=== PATIENT | female | born 1955 | race African-American/Black ===

== ENCOUNTER 2018-06-11 07:55 | Inpatient (IN) | payer MEDICAID, OTHER ==
[~2018-06-11] VITALS: Ht 157.5 cm; Wt 79.4 kg
[2018-06-11] MEDS ORDERED: ONDANSETRON HCL 4MG/2ML INJ IV STA (08:34)
[2018-06-11] MEDS ORDERED: MORPHINE SULFATE 4 MG/ML CPJ (NOT FOR IM USE) IV STA (08:34)
[2018-06-11 08:59] LABS: HEMATOCRIT. 30.3 % (36.0-48.0); HEMOGLOBIN. 9.4 g/dL (12.0-16.0); MEAN CORPUSCULAR HEMOGLOBIN 27.1 pg (28.0-32.0); MEAN CORPUSCULAR VOLUME 87.5 fL (81.0-99.0); MEAN PLATELET VOLUME 9.9 fl (7.4-10.4); PLATELET 201 x1000/uL (130-400); RED BLOOD CELL COUNT 3.46 mill/uL (4.2-5.4); RED CELL DISTRIBUTION WIDTH 18.1 % (11.6-14.6)
[2018-06-11 09:06] LABS: CHLORIDE 99 mEq/L (98-107)
[2018-06-11] MEDS ORDERED: DEXTROSE 50% WATER 50ML SYRINGE IV ONE ×2 (09:24→09:30)
[2018-06-11] MEDS ORDERED: POTASSIUM CHLORIDE 20MEQ TABLET SR PO ONE (09:30)
[2018-06-11 10:39] LABS: NUCLEATED RED BLOOD CELLS 3 /100 WBC; PLATELET ESTIMATE NORMAL
[2018-06-11] MEDS ORDERED: PIPERACILLIN/TAZ 3.375G PREMIX 50 ML IV ONE (10:45)
[2018-06-11] MEDS ORDERED: VANCOMYCIN 1 G PREMIX 200 ML IV ONE (10:45)
[2018-06-11] MEDS ORDERED: IPRATROPIUM/ALBUTEROL 0.5-3(2.5)MG/3ML NEB INH PRN (12:30)
[2018-06-11] MEDS ORDERED: ONDANSETRON HCL 4MG/2ML INJ IV PRN (12:30)
[2018-06-11] MEDS ORDERED: DIPHENHYDRAMINE 50MG/ML VIAL IV PRN (12:30)
[2018-06-11] MEDS ORDERED: DOCUSATE SODIUM 100MG CAPSULE PO PRN (12:30)
[2018-06-11 13:18] LABS: CREATINE KINASE 94 IU/L (26-192)
[2018-06-11 13:53] VITALS: BP 148/70
[2018-06-11 14:27] LABS: CHLORIDE 98 mEq/L (98-107)
[2018-06-11] MEDS ORDERED: CLONIDINE 0.1MG TABLET PO PRN (14:30)
[2018-06-11] MEDS ORDERED: CLONIDINE 0.2MG TABLET PO PRN (14:30)
[2018-06-11 14:31] LABS: ETHANOL BLOOD < 10 mg/dL
[2018-06-11 15:00] LABS: HEPATITIS B SURFACE ANTIGEN NEGATIVE
[2018-06-11 15:30] LABS: HEPATITIS A AB IGM NEGATIVE (NEGATIVE)
[2018-06-11 16:24] VITALS: BP 149/73
[2018-06-11] MEDS: DILTIAZEM HCL 120MG CAPSULE CD 24HR PO SCH ×2 (17:10→21:00)
[2018-06-11 18:00] VITALS: BP 150/80
[2018-06-11] MEDS ORDERED: POTASSIUM CHLORIDE 20MEQ TABLET SR PO NR (18:00)
[2018-06-11 20:00] VITALS: BP_SYST 164; BP_SYST 85; BP_DIAS 46; BP_DIAS 88
[2018-06-11 21:05] VITALS: BP 97/45
[2018-06-11] MEDS ORDERED: DEXTROSE 50% WATER 50ML SYRINGE IV PRN (23:30)
[2018-06-12] VITALS (19 sets, daily range): BP systolic 100–153; BP diastolic 50–101
[2018-06-12 00:22] LABS: MEAN CORPUSCULAR HEMOGLOBIN 27.6 pg (28.0-32.0); PLATELET 114 x1000/uL (130-400); RED BLOOD CELL COUNT 2.27 mill/uL (4.2-5.4); RED CELL DISTRIBUTION WIDTH 17.2 % (11.6-14.6)
[2018-06-12 00:35] LABS: HEMOGLOBIN. 6.3 g/dL (12.0-16.0)
[2018-06-12 00:37] LABS: HEMATOCRIT. 19.7 % (36.0-48.0)
[2018-06-12 00:48] LABS: CREATINE KINASE 51 IU/L (26-192)
[2018-06-12] MEDS: SODIUM CHLORIDE 0.45% 1,000 ML IV SCH ×2 (01:34→10:19)
[2018-06-12] MEDS: PANTOPRAZOLE 80 MG in SODIUM CHLORIDE 0.9% 100 ML IV SCH ×2 (02:39→10:18)
[2018-06-12] MEDS: HYDROCODONE/ACETAMINOPHEN 5/325MG TABLET PO PRN (03:56)
[2018-06-12] MEDS ORDERED: MAGNESIUM 2 G PREMIX 50 ML IV SCH (06:00)
[2018-06-12] MEDS: BLOOD SUGAR DIAGNOSTIC STRIP TEST SCH ×4 (06:43→21:34)
[2018-06-12] MEDS: INSULIN LISPRO 100 UNITS/ML SUBCUT SCH ×4 (06:47→21:00)
[2018-06-12 07:40] LABS: NUCLEATED RED BLOOD CELLS 9 /100 WBC; PLATELET ESTIMATE SLIGHTLY DECREASED
[2018-06-12 08:38] LABS: BASOPHILS % 0.1 % (0.0-2.0); EOSINOPHILS % 0.2 % (0.0-5.0); LYMPHOCYTES % 7.4 % (20.0-50.0); MEAN CORPUSCULAR HEMOGLOBIN 27.6 pg (28.0-32.0); MEAN CORPUSCULAR VOLUME 87.7 fL (81.0-99.0); MEAN PLATELET VOLUME 10.2 fl (7.4-10.4); MONOCYTES % 7.6 % (2.0-8.0); NEUTROPHILS % 84.7 % (40.0-76.0); PLATELET 101 x1000/uL (130-400); RED BLOOD CELL COUNT 2.06 mill/uL (4.2-5.4); RED CELL DISTRIBUTION WIDTH 17.2 % (11.6-14.6)
[2018-06-12 08:52] LABS: HEMOGLOBIN. 5.7 g/dL (12.0-16.0)
[2018-06-12 09:00] LABS: CHLORIDE 100 mEq/L (98-107)
[2018-06-12 09:12] LABS: CREATINE KINASE MB FRACTION < 1.0 ng/mL (0.5-3.6); HDL CHOLESTEROL 8 mg/dL (40-59)
[2018-06-12 09:16] LABS: CREATINE KINASE 32 IU/L (26-192); LDL CHOLESTEROL 19 mg/dL (5-100)
[2018-06-12 09:48] LABS: CREATINE KINASE 37 IU/L (26-192)
[2018-06-12] MEDS: DILTIAZEM HCL 120MG CAPSULE CD 24HR PO SCH ×2 (10:01→21:27)
[2018-06-12] MEDS: PANTOPRAZOLE SODIUM 40 MG/VIAL IV SCH ×2 (12:26→21:27)
[2018-06-12] MEDS ORDERED: PROPOFOL 200MG/20ML VIAL IV ONE ×2 (13:59→14:10)
[2018-06-12] MEDS ORDERED: LIDOCAINE HCL/PF 1% 10 MG/ML 5ML VIAL ONE (13:59)
[2018-06-12 15:58] LABS: TOTAL IRON BINDING CAPACITY 95 ug/dL (250-450)
[2018-06-12 16:32] LABS: VITAMIN B12 SERUM >2000 pg/mL pg/mL (211-911)
[2018-06-12 17:20] LABS: FERRITIN 302 ng/mL (10-291)
[2018-06-12] MEDS ORDERED: LORAZEPAM 1MG TABLET PO PRN (17:30)
[2018-06-12] MEDS: CEFTRIAXONE 1 G PREMIX 50 ML IV SCH (18:38)
[2018-06-12 20:55] LABS: INR 1.4; PARTIAL THROMBOPLASTIN TIME 37.3 sec (23.4-31.0); PROTHROMBIN TIME 14.1 sec (9.1-11.1)
[2018-06-12 20:58] LABS: HEMATOCRIT. 30.7 % (36.0-48.0); HEMOGLOBIN. 10.3 g/dL (12.0-16.0); MEAN CORPUSCULAR HEMOGLOBIN 29.2 pg (28.0-32.0); MEAN CORPUSCULAR VOLUME 87.3 fL (81.0-99.0); MEAN PLATELET VOLUME 10.7 fl (7.4-10.4); PLATELET 70 x1000/uL (130-400); RED BLOOD CELL COUNT 3.52 mill/uL (4.2-5.4); RED CELL DISTRIBUTION WIDTH 15.5 % (11.6-14.6)
[2018-06-12 22:39] LABS: NUCLEATED RED BLOOD CELLS 15 /100 WBC; PLATELET ESTIMATE DECREASED
[2018-06-13] VITALS (13 sets, daily range): BP systolic 88–147; BP diastolic 57–108
[2018-06-13] MEDS: BLOOD SUGAR DIAGNOSTIC STRIP TEST SCH (06:22)
[2018-06-13 06:42] LABS: HEMATOCRIT 33.4 % (36.0-48.0); HEMOGLOBIN 11.1 g/dL (12.0-16.0)
[2018-06-13] MEDS: INSULIN LISPRO 100 UNITS/ML SUBCUT SCH (07:20)
[2018-06-13] MEDS: DILTIAZEM HCL 120MG CAPSULE CD 24HR PO SCH (08:38)
[2018-06-13] MEDS: PANTOPRAZOLE SODIUM 40 MG/VIAL IV SCH ×2 (08:57→22:00)
[2018-06-13 09:06] LABS: HIV SCREEN 4G Non Reactive (Non Reactive)
[2018-06-13] MEDS ORDERED: KCL 20MEQ/100ML PREMIX 100 ML IV NR (11:30)
[2018-06-13] MEDS: HYDROCODONE/ACETAMINOPHEN 5/325MG TABLET PO PRN (12:33)
[2018-06-13] MEDS ORDERED: CARVEDILOL 3.125 MG TABLET PO NR (13:15)
[2018-06-13 15:22] LABS: HEMATOCRIT 35.9 % (36.0-48.0); HEMOGLOBIN 11.7 g/dL (12.0-16.0)
[2018-06-13] MEDS: CEFTRIAXONE 1 G PREMIX 50 ML IV SCH (17:09)
[2018-06-13] MEDS: DILTIAZEM HCL 60MG TABLET PO SCH (17:12)
[2018-06-13] MEDS: SODIUM CHLORIDE 0.45% 1,000 ML IV SCH (17:18)
[2018-06-13] MEDS: CARVEDILOL 3.125 MG TABLET PO SCH (21:00)
[2018-06-13] MEDS ORDERED: DEXT 5%/0.45% NACL 1000ML 1,000 ML IV SCH (21:30)
[2018-06-13] MEDS: DEXTROSE 50% WATER 50ML SYRINGE IV PRN (22:06)
[2018-06-13] MEDS: ACETAMINOPHEN 325MG TABLET PO PRN (22:27)
[2018-06-13] MEDS ORDERED: DEXAMETHASONE 1MG TABLET PO NR (23:55)
[2018-06-14] VITALS (64 sets, daily range): BP systolic 56–161; BP diastolic 24–108
[2018-06-14] MEDS: BLOOD SUGAR DIAGNOSTIC STRIP TEST SCH ×6 (04:00→18:00)
[2018-06-14] MEDS: DILTIAZEM HCL 60MG TABLET PO SCH ×4 (06:00→16:51)
[2018-06-14] MEDS ORDERED: BLOOD SUGAR DIAGNOSTIC STRIP TEST SCH (06:50)
[2018-06-14] MEDS: INSULIN LISPRO 100 UNITS/ML SUBCUT SCH ×2 (07:20→08:20)
[2018-06-14 08:28] LABS: HEMATOCRIT. 34.4 % (36.0-48.0); MEAN CORPUSCULAR VOLUME 90.7 fL (81.0-99.0); RED BLOOD CELL COUNT 3.79 mill/uL (4.2-5.4); RED CELL DISTRIBUTION WIDTH 16.3 % (11.6-14.6)
[2018-06-14] MEDS ORDERED: DEXT 10% WATER 1,000 ML IV SCH (08:30)
[2018-06-14] MEDS ORDERED: LORAZEPAM 2MG/ML CPJ IV PRN (08:45)
[2018-06-14] MEDS: CARVEDILOL 3.125 MG TABLET PO SCH ×2 (09:00→21:00)
[2018-06-14] MEDS: NOREPINEPHRINE 16 MG in DEXT 5% WATER 234 ML IV PRN ×2 (09:25→18:42)
[2018-06-14] MEDS: PANTOPRAZOLE SODIUM 40 MG/VIAL IV SCH ×2 (09:28→21:58)
[2018-06-14 09:38] LABS: BG BASE EXCESS -10.7 mmol/L (-2.0-2.0); BG CARBOXYHEMOGLOBIN 0.6 % (0.5-1.5); BG DEOXYHEMOGLOBIN 0.7 % (0.0-5.0); BG FRACTION INSPIRED OXYGEN 100; BG METHEMOGLOBIN 0.5 % (0.0-1.5); BG OXYGEN SATURATION 99.3 % (92.0-98.5); BG OXYHEMOGLOBIN 98.2 % (94.0-97.0); BG PCO2 53.7 mmHg (35.0-45.0); BG PH 7.143 (7.350-7.450); BG PO2 298.1 mmHg (75.0-100.0); BG SAMPLE SITE RIGHT BRACHIAL; BG TIDAL VOLUME(mL) 500 mL; BG TOTAL HEMOGLOBIN 10.1 g/dL (12.0-18.0); BG VENT MODE VENT - A/C; BG VENT RATE 14 set
[2018-06-14 10:37] LABS: NUCLEATED RED BLOOD CELLS 2 /100 WBC
[2018-06-14 10:38] LABS: PLATELET ESTIMATE MARKEDLY DECREASED
[2018-06-14 10:41] LABS: MEAN PLATELET VOLUME 12.3 fl (7.4-10.4); PLATELET 31 x1000/uL (130-400)
[2018-06-14] MEDS ORDERED: SODIUM POLYSTYRENE SULFONATE 15 G/60 ML BOT PO NR (11:00)
[2018-06-14] MEDS ORDERED: PHENYLEPHRINE 10 MG in DEXT 5% WATER 249 ML IV PRN ×5 (11:15→11:30)
[2018-06-14] MEDS ORDERED: SODIUM BICARBONATE 8.4% 1 MEQ/ML 50ML SYR IV ONE ×2 (11:24→15:05)
[2018-06-14] MEDS ORDERED: SODIUM BICARBONATE 8.4% 1 MEQ/ML 50ML SYR IV SCH ×2 (12:00→12:30)
[2018-06-14 12:02] LABS: BG BASE EXCESS -5.9 mmol/L (-2.0-2.0); BG CARBOXYHEMOGLOBIN 0.6 % (0.5-1.5); BG DEOXYHEMOGLOBIN 0.5 % (0.0-5.0); BG FRACTION INSPIRED OXYGEN 100; BG HCO3 ACT 22.7 mmol/L (22.0-26.0); BG METHEMOGLOBIN 0.7 % (0.0-1.5); BG OXYGEN SATURATION 99.5 % (92.0-98.5); BG OXYHEMOGLOBIN 98.2 % (94.0-97.0); BG PCO2 60.6 mmHg (35.0-45.0); BG PH 7.191 (7.350-7.450); BG PO2 344.8 mmHg (75.0-100.0); BG SAMPLE SITE RIGHT BRACHIAL; BG TIDAL VOLUME(mL) 500 mL; BG TOTAL HEMOGLOBIN 10.6 g/dL (12.0-18.0); BG VENT MODE VENT - A/C; BG VENT RATE 16 set
[2018-06-14] MEDS ORDERED: VANCOMYCIN 1 G PREMIX 200 ML IV SCH (12:45)
[2018-06-14] MEDS ORDERED: PIPERACILLIN/TAZOBACTAM 3.375GM/50ML PREMIX IV ONE (12:45)
[2018-06-14] MEDS ORDERED: DEXTROSE 50% WATER 50ML SYRINGE IV ONE ×2 (13:35→15:05)
[2018-06-14] MEDS ORDERED: ETOMIDATE 2MG/ML 10ML VIAL IV ONE (13:38)
[2018-06-14] MEDS ORDERED: SUCCINYLCHOLINE CHLORIDE 200MG/10ML IV ONE (13:38)
[2018-06-14 13:57] LABS: BG BASE EXCESS -6.4 mmol/L (-2.0-2.0); BG CARBOXYHEMOGLOBIN 0.3 % (0.5-1.5); BG DEOXYHEMOGLOBIN 5.5 % (0.0-5.0); BG FRACTION INSPIRED OXYGEN 70; BG HCO3 ACT 19.3 mmol/L (22.0-26.0); BG METHEMOGLOBIN 0.1 % (0.0-1.5); BG OXYGEN SATURATION 94.5 % (92.0-98.5); BG OXYHEMOGLOBIN 94.1 % (94.0-97.0); BG PCO2 38.7 mmHg (35.0-45.0); BG PH 7.315 (7.350-7.450); BG PO2 73.7 mmHg (75.0-100.0); BG SAMPLE SITE RIGHT BRACHIAL; BG TIDAL VOLUME(mL) 500 mL; BG TOTAL HEMOGLOBIN 11.2 g/dL (12.0-18.0); BG VENT MODE VENT - A/C; BG VENT RATE 22 set
[2018-06-14] MEDS: SODIUM BICARBONATE 100 MEQ in DEXT 10% WATER 1,000 ML IV SCH (14:27)
[2018-06-14] MEDS: MIDODRINE HCL 5MG TABLET PO SCH ×2 (14:27→17:00)
[2018-06-14] MEDS ORDERED: VANCOMYCIN 1500MG in DEXTROSE 5% WATER 250ML IV NR (15:00)
[2018-06-14] MEDS ORDERED: EPINEPHRINE 0.1MG/ML (1:10,000) 10ML SYR ONE (15:05)
[2018-06-14] MEDS: LORAZEPAM 2MG/ML CPJ IV PRN (15:13)
[2018-06-14 16:20] LABS: CLARITY URINE TURBID (CLEAR); COLOR URINE DARK YELLOW (YELLOW); KETONES URINE NEGATIVE (NEGATIVE); LEUKOCYTE ESTERASE URINE NEGATIVE (NEGATIVE); NITRITE URINE NEGATIVE (NEGATIVE); OCCULT BLOOD URINE 3+ (NEGATIVE); PROTEIN URINE 2+ (NEGATIVE); SPECIFIC GRAVITY URINE 1.013 (1.005-1.030); UROBILINOGEN URINE 0.2 E.U./dL (0.2-1.0)
[2018-06-14] MEDS: IPRATROPIUM/ALBUTEROL 0.5-3(2.5)MG/3ML NEB HHN SCH ×3 (16:48→19:40)
[2018-06-14] MEDS ORDERED: PHENYLEPHRINE 40 MG in DEXT 5% WATER 246 ML IV PRN (17:15)
[2018-06-14] MEDS: CEFTRIAXONE 1 G PREMIX 50 ML IV SCH (18:41)
[2018-06-14] MEDS ORDERED: SODIUM CHLORIDE 0.9% 1,000 ML IV SCH (19:30)
[2018-06-14 21:49] LABS: HEMATOCRIT 35.4 % (36.0-48.0); HEMOGLOBIN 11.5 g/dL (12.0-16.0)
[2018-06-14] MEDS: PHENYLEPHRINE 80 MG in DEXT 5% WATER 492 ML IV PRN (23:07)
[2018-06-15] VITALS (78 sets, daily range): BP systolic 67–146; BP diastolic 34–102
[2018-06-15] MEDS: IPRATROPIUM/ALBUTEROL 0.5-3(2.5)MG/3ML NEB HHN SCH ×6 (00:11→21:04)
[2018-06-15] MEDS: DILTIAZEM HCL 60MG TABLET PO SCH ×2 (01:18→06:46)
[2018-06-15] MEDS: LORAZEPAM 2MG/ML CPJ IV PRN ×3 (01:18→16:06)
[2018-06-15 02:08] LABS: HEMATOCRIT 36.8 % (36.0-48.0); HEMOGLOBIN 11.7 g/dL (12.0-16.0)
[2018-06-15] MEDS: BLOOD SUGAR DIAGNOSTIC STRIP TEST SCH ×10 (02:32→17:59)
[2018-06-15] MEDS: NOREPINEPHRINE 16 MG in DEXT 5% WATER 484 ML IV PRN ×2 (04:31→16:33)
[2018-06-15 06:05] LABS: BASOPHILS % 0.3 % (0.0-2.0); EOSINOPHILS % 0.1 % (0.0-5.0); HEMATOCRIT. 37.5 % (36.0-48.0); HEMOGLOBIN. 11.8 g/dL (12.0-16.0); LYMPHOCYTES % 42.9 % (20.0-50.0); MEAN CORPUSCULAR HEMOGLOBIN 28.4 pg (28.0-32.0); MEAN CORPUSCULAR VOLUME 90.7 fL (81.0-99.0); MEAN PLATELET VOLUME 7.3 fl (7.4-10.4); MONOCYTES % 5.2 % (2.0-8.0); NEUTROPHILS % 51.5 % (40.0-76.0); RED BLOOD CELL COUNT 4.14 mill/uL (4.2-5.4); RED CELL DISTRIBUTION WIDTH 16.6 % (11.6-14.6)
[2018-06-15 06:55] LABS: PLATELET 16 x1000/uL (130-400)
[2018-06-15] MEDS: PHENYLEPHRINE 80 MG in DEXT 5% WATER 492 ML IV PRN ×2 (08:25→15:07)
[2018-06-15] MEDS: PANTOPRAZOLE SODIUM 40 MG/VIAL IV SCH ×2 (08:31→21:26)
[2018-06-15] MEDS: MIDODRINE HCL 5MG TABLET PO SCH ×3 (08:31→16:36)
[2018-06-15] MEDS: ACETAMINOPHEN 325MG TABLET PO PRN (08:31)
[2018-06-15] MEDS: CARVEDILOL 3.125 MG TABLET PO SCH (09:00)
[2018-06-15 09:10] LABS: INR 1.6; PARTIAL THROMBOPLASTIN TIME 55.8 sec (23.4-31.0); PROTHROMBIN TIME 15.8 sec (9.1-11.1)
[2018-06-15 09:39] LABS: PHOSPHORUS 3.2 mg/dL (2.5-4.9)
[2018-06-15 10:22] LABS: BG BASE EXCESS -6.6 mmol/L (-2.0-2.0); BG CARBOXYHEMOGLOBIN 0.2 % (0.5-1.5); BG DEOXYHEMOGLOBIN 0.9 % (0.0-5.0); BG FRACTION INSPIRED OXYGEN 55; BG HCO3 ACT 16.3 mmol/L (22.0-26.0); BG METHEMOGLOBIN 0.3 % (0.0-1.5); BG OXYGEN SATURATION 99.1 % (92.0-98.5); BG OXYHEMOGLOBIN 98.6 % (94.0-97.0); BG PCO2 25.4 mmHg (35.0-45.0); BG PH 7.425 (7.350-7.450); BG PO2 164.2 mmHg (75.0-100.0); BG SAMPLE SITE RIGHT BRACHIAL; BG TIDAL VOLUME(mL) 500 mL; BG TOTAL HEMOGLOBIN 11.4 g/dL (12.0-18.0); BG VENT MODE VENT - A/C; BG VENT RATE 22 set
[2018-06-15] MEDS ORDERED: MAGNESIUM 2 G PREMIX 50 ML IV NR (13:00)
[2018-06-15 15:38] LABS: HEMATOCRIT. 35.5 % (36.0-48.0); HEMOGLOBIN. 11.2 g/dL (12.0-16.0); MEAN CORPUSCULAR HEMOGLOBIN 28.2 pg (28.0-32.0); MEAN CORPUSCULAR VOLUME 89.6 fL (81.0-99.0); MEAN PLATELET VOLUME 7.7 fl (7.4-10.4); PLATELET 57 x1000/uL (130-400); RED BLOOD CELL COUNT 3.96 mill/uL (4.2-5.4); RED CELL DISTRIBUTION WIDTH 16.8 % (11.6-14.6)
[2018-06-15 16:24] LABS: NUCLEATED RED BLOOD CELLS 5 /100 WBC; PLATELET ESTIMATE DECREASED
[2018-06-15] MEDS ORDERED: CEFEPIME 2,000 MG in DEXT 5% WATER 100 ML IV SCH (17:45)
[2018-06-15] MEDS: SODIUM BICARBONATE 100 MEQ in DEXT 10% WATER 1,000 ML IV SCH (17:52)
[2018-06-15] MEDS: MICAFUNGIN 100 MG in SODIUM CHLORIDE 0.9% 100 ML IV SCH (21:13)
[2018-06-15] MEDS: METRONIDAZOLE 500 MG PREMIX 100 ML IV SCH (21:15)
[2018-06-16] VITALS (102 sets, daily range): BP systolic 56–163; BP diastolic 19–85
[2018-06-16] MEDS: IPRATROPIUM/ALBUTEROL 0.5-3(2.5)MG/3ML NEB HHN SCH ×3 (00:39→08:11)
[2018-06-16] MEDS: BLOOD SUGAR DIAGNOSTIC STRIP TEST SCH ×10 (00:39→17:56)
[2018-06-16] MEDS: NOREPINEPHRINE 16 MG in DEXT 5% WATER 484 ML IV PRN ×3 (05:07→19:26)
[2018-06-16] MEDS: METRONIDAZOLE 500 MG PREMIX 100 ML IV SCH ×4 (05:08→22:27)
[2018-06-16] MEDS: PHENYLEPHRINE 80 MG in DEXT 5% WATER 492 ML IV PRN ×3 (05:10→20:34)
[2018-06-16 05:23] LABS: FOLICLE STIMULATING HORMONE 10.2 mIU/mL (.); LUTEINIZING HORMONE 5.5 mIU/mL (.)
[2018-06-16 06:38] LABS: HEMATOCRIT. 32.7 % (36.0-48.0); HEMOGLOBIN. 10.4 g/dL (12.0-16.0); MEAN CORPUSCULAR HEMOGLOBIN 28.5 pg (28.0-32.0); MEAN CORPUSCULAR VOLUME 89.3 fL (81.0-99.0); MEAN PLATELET VOLUME 11.7 fl (7.4-10.4); RED BLOOD CELL COUNT 3.66 mill/uL (4.2-5.4); RED CELL DISTRIBUTION WIDTH 16.3 % (11.6-14.6)
[2018-06-16 06:49] LABS: PLATELET 6 x1000/uL (130-400)
[2018-06-16 06:52] LABS: T4 FREE 0.29 ng/dL (0.76-1.46)
[2018-06-16 08:18] LABS: NUCLEATED RED BLOOD CELLS 32 /100 WBC; PLATELET ESTIMATE MARKEDLY DECREASED
[2018-06-16 08:25] LABS: BG BASE EXCESS -8.2 mmol/L (-2.0-2.0); BG CARBOXYHEMOGLOBIN 0.2 % (0.5-1.5); BG DEOXYHEMOGLOBIN 1.3 % (0.0-5.0); BG FRACTION INSPIRED OXYGEN 55; BG HCO3 ACT 15.5 mmol/L (22.0-26.0); BG METHEMOGLOBIN 0.2 % (0.0-1.5); BG OXYGEN SATURATION 98.7 % (92.0-98.5); BG OXYHEMOGLOBIN 98.3 % (94.0-97.0); BG PCO2 26.4 mmHg (35.0-45.0); BG PH 7.386 (7.350-7.450); BG PO2 134.5 mmHg (75.0-100.0); BG SAMPLE SITE LEFT BRACHIAL; BG TIDAL VOLUME(mL) 500 mL; BG TOTAL HEMOGLOBIN 11.1 g/dL (12.0-18.0); BG VENT MODE VENT - A/C; BG VENT RATE 22 set
[2018-06-16] MEDS: PANTOPRAZOLE SODIUM 40 MG/VIAL IV SCH ×2 (09:24→20:35)
[2018-06-16] MEDS: MIDODRINE HCL 5MG TABLET PO SCH ×3 (09:25→16:47)
[2018-06-16] MEDS ORDERED: FENTANYL CITRATE/PF 50MCG/ML 2ML VIAL IV PRN (10:00)
[2018-06-16] MEDS ORDERED: VASOPRESSIN 10 UNIT in SODIUM CHLORIDE 0.9% 99.5 ML IV PRN (11:15)
[2018-06-16 11:16] LABS: INR 1.4; PARTIAL THROMBOPLASTIN TIME 55.8 sec (23.4-31.0)
[2018-06-16 11:39] LABS: D-DIMER 9.32 mg/L FEU (<0.50)
[2018-06-16 11:40] LABS: PROTHROMBIN TIME 14.1 sec (9.1-11.1)
[2018-06-16] MEDS: IPRATROPIUM BROMIDE (0.02%) 0.5MG/2.5ML NEB HHN SCH ×3 (11:50→20:16)
[2018-06-16] MEDS: VASOPRESSIN 10 UNIT in SODIUM CHLORIDE 0.9% 99.5 ML IV PRN ×2 (12:33→16:48)
[2018-06-16 13:06] LABS: C-PEPTIDE 0.9 ng/mL (1.1-4.4); INSULIN 1.1 uIU/mL (2.6-24.9)
[2018-06-16 13:18] LABS: BG BASE EXCESS -16.7 mmol/L (-2.0-2.0); BG CARBOXYHEMOGLOBIN 0.3 % (0.5-1.5); BG DEOXYHEMOGLOBIN 0.9 % (0.0-5.0); BG FRACTION INSPIRED OXYGEN 55; BG HCO3 ACT 9.5 mmol/L (22.0-26.0); BG METHEMOGLOBIN 0.3 % (0.0-1.5); BG OXYGEN SATURATION 99.1 % (92.0-98.5); BG OXYHEMOGLOBIN 98.5 % (94.0-97.0); BG PCO2 24.2 mmHg (35.0-45.0); BG PH 7.212 (7.350-7.450); BG PO2 171.2 mmHg (75.0-100.0); BG SAMPLE SITE RIGHT RADIAL; BG TIDAL VOLUME(mL) 500 mL; BG TOTAL HEMOGLOBIN 10.7 g/dL (12.0-18.0); BG VENT MODE VENT - A/C; BG VENT RATE 22 set
[2018-06-16] MEDS ORDERED: SODIUM BICARBONATE 8.4% 1 MEQ/ML 50ML SYR IV SCH (13:30)
[2018-06-16] MEDS: LEVOTHYROXINE SODIUM 100 MCG/ VIAL IV SCH (13:41)
[2018-06-16] MEDS ORDERED: DIGOXIN 500MCG/2ML AMP IV SCH (16:45)
[2018-06-16 17:44] LABS: BG BASE EXCESS -11.8 mmol/L (-2.0-2.0); BG CARBOXYHEMOGLOBIN 0.2 % (0.5-1.5); BG DEOXYHEMOGLOBIN 1.2 % (0.0-5.0); BG FRACTION INSPIRED OXYGEN 55; BG HCO3 ACT 11.8 mmol/L (22.0-26.0); BG METHEMOGLOBIN 0.5 % (0.0-1.5); BG OXYGEN SATURATION 98.8 % (92.0-98.5); BG OXYHEMOGLOBIN 98.1 % (94.0-97.0); BG PCO2 21.5 mmHg (35.0-45.0); BG PH 7.359 (7.350-7.450); BG PO2 146.6 mmHg (75.0-100.0); BG SAMPLE SITE RIGHT RADIAL; BG TIDAL VOLUME(mL) 500 mL; BG TOTAL HEMOGLOBIN 10.5 g/dL (12.0-18.0); BG VENT MODE VENT - A/C; BG VENT RATE 26 set
[2018-06-16] MEDS ORDERED: VANCOMYCIN 750 MG PREMIX 150 ML IV NR (18:00)
[2018-06-16] MEDS ORDERED: CEFEPIME 1,000 MG in DEXTROSE 5% WATER 50 ML IV SCH (18:00)
[2018-06-16] MEDS ORDERED: DIGOXIN 500MCG/2ML AMP IV PRN (18:45)
[2018-06-16] MEDS: MICAFUNGIN 100 MG in SODIUM CHLORIDE 0.9% 100 ML IV SCH (20:27)
[2018-06-16] MEDS: SODIUM BICARBONATE 100 MEQ in DEXT 10% WATER 1,000 ML IV SCH (20:35)
[2018-06-17] VITALS (99 sets, daily range): BP systolic 73–125; BP diastolic 37–73
[2018-06-17] MEDS: BLOOD SUGAR DIAGNOSTIC STRIP TEST SCH ×7 (00:36→21:00)
[2018-06-17] MEDS: IPRATROPIUM BROMIDE (0.02%) 0.5MG/2.5ML NEB HHN SCH ×6 (00:46→20:54)
[2018-06-17] MEDS ORDERED: DEXTROSE 50% WATER 50ML SYRINGE IV NR (04:13)
[2018-06-17] MEDS: DEXTROSE 50% WATER 50ML SYRINGE IV PRN (04:22)
[2018-06-17] MEDS: PHENYLEPHRINE 80 MG in DEXT 5% WATER 492 ML IV PRN ×2 (06:06→12:19)
[2018-06-17] MEDS: NOREPINEPHRINE 16 MG in DEXT 5% WATER 484 ML IV PRN ×2 (06:08→12:19)
[2018-06-17] MEDS: METRONIDAZOLE 500 MG PREMIX 100 ML IV SCH ×3 (06:09→23:18)
[2018-06-17 06:14] LABS: HEMATOCRIT. 29.1 % (36.0-48.0); HEMOGLOBIN. 9.4 g/dL (12.0-16.0); MEAN CORPUSCULAR HEMOGLOBIN 28.7 pg (28.0-32.0); MEAN CORPUSCULAR VOLUME 89.2 fL (81.0-99.0); MEAN PLATELET VOLUME 10.2 fl (7.4-10.4); RED BLOOD CELL COUNT 3.26 mill/uL (4.2-5.4); RED CELL DISTRIBUTION WIDTH 16.6 % (11.6-14.6)
[2018-06-17 06:45] LABS: PLATELET 7 x1000/uL (130-400)
[2018-06-17 08:25] LABS: NUCLEATED RED BLOOD CELLS 19 /100 WBC
[2018-06-17 08:30] LABS: PLATELET ESTIMATE MARKEDLY DECREASED
[2018-06-17] MEDS: PANTOPRAZOLE SODIUM 40 MG/VIAL IV SCH ×2 (08:38→20:56)
[2018-06-17] MEDS: MIDODRINE HCL 5MG TABLET PO SCH ×3 (08:38→16:33)
[2018-06-17] MEDS: LEVOTHYROXINE SODIUM 100 MCG/ VIAL IV SCH (08:39)
[2018-06-17] MEDS: ACETAMINOPHEN 325MG TABLET PO PRN (08:40)
[2018-06-17 09:00] LABS: BG CARBOXYHEMOGLOBIN 0.3 % (0.5-1.5); BG DEOXYHEMOGLOBIN 2.6 % (0.0-5.0); BG FRACTION INSPIRED OXYGEN 55; BG HCO3 ACT 9.7 mmol/L (22.0-26.0); BG METHEMOGLOBIN 0.2 % (0.0-1.5); BG OXYGEN SATURATION 97.4 % (92.0-98.5); BG OXYHEMOGLOBIN 96.9 % (94.0-97.0); BG PCO2 26.4 mmHg (35.0-45.0); BG PH 7.185 (7.350-7.450); BG PO2 114.5 mmHg (75.0-100.0); BG SAMPLE SITE LEFT BRACHIAL; BG TIDAL VOLUME(mL) 500 mL; BG VENT MODE VENT - A/C; BG VENT RATE 26 set
[2018-06-17] MEDS ORDERED: SODIUM BICARBONATE 100 MEQ in DEXTROSE 5% WATER 900 ML IV SCH (09:00)
[2018-06-17] MEDS ORDERED: SODIUM BICARBONATE 8.4% 1 MEQ/ML 50ML SYR IV NR (09:15)
[2018-06-17] MEDS ORDERED: BLOOD SUGAR DIAGNOSTIC STRIP TEST SCH (12:00)
[2018-06-17] MEDS ORDERED: [UNRECOGNIZED DRUG - REMARK] XX SCH (14:00)
[2018-06-17] MEDS ORDERED: NON FORMULARY PATIENT HOME MED XX SCH (14:00)
[2018-06-17] MEDS ORDERED: NOREPINEPHRINE 16 MG in SODIUM CHLORIDE 0.9% 484 ML IV PRN (15:00)
[2018-06-17] MEDS ORDERED: SODIUM BICARBONATE 100 MEQ in DEXT 5%/0.9% NACL 900 ML IV SCH (16:00)
[2018-06-17] MEDS ORDERED: CEFEPIME 1,000 MG in SODIUM CHLORIDE 0.9% 50 ML IV SCH (18:00)
[2018-06-17] MEDS ORDERED: NOREPINEPHRINE 32 MG in SODIUM CHLORIDE 0.9% 468 ML IV PRN (20:00)
[2018-06-17] MEDS: MICAFUNGIN 100 MG in SODIUM CHLORIDE 0.9% 100 ML IV SCH (20:56)
[2018-06-17] MEDS: PHENYLEPHRINE 80 MG in SODIUM CHLORIDE 0.9% 492 ML IV PRN (20:57)
[2018-06-18] VITALS (42 sets, daily range): BP systolic 31–112; BP diastolic 19–71
[2018-06-18] MEDS: IPRATROPIUM BROMIDE (0.02%) 0.5MG/2.5ML NEB HHN SCH ×3 (01:16→08:20)
[2018-06-18] MEDS: PHENYLEPHRINE 80 MG in SODIUM CHLORIDE 0.9% 492 ML IV PRN (02:24)
[2018-06-18] MEDS: METRONIDAZOLE 500 MG PREMIX 100 ML IV SCH (08:30)
[2018-06-18] MEDS: LEVOTHYROXINE SODIUM 100 MCG/ VIAL IV SCH (09:00)
[2018-06-18] MEDS: PANTOPRAZOLE SODIUM 40 MG/VIAL IV SCH (09:03)
[2018-06-18] MEDS: BLOOD SUGAR DIAGNOSTIC STRIP TEST SCH (09:04)
[2018-06-18] MEDS: MIDODRINE HCL 5MG TABLET PO SCH (09:04)
[2018-06-18] MEDS: DEXTROSE 50% WATER 50ML SYRINGE IV PRN (09:17)
[2018-06-18] MEDS ORDERED: LORAZEPAM 2MG/ML CPJ IV PRN (11:45)
[2018-06-18] MEDS ORDERED: MORPHINE SULFATE 250 MG in DEXT 5% WATER 240 ML IV PRN (12:00)
== END 2018-06-18 12:43 | disposition expired | DRG 720 ==
LOC: ER 08:04 → EDBEDREQ 09:21 → EDBEDREQSVC 10:47 → 8WST 11:30 → EDBEDREQ 11:33 → ENRESERV 11:34 → 3WST 23:05 → CVICU 06-14 08:01
PROVIDERS: ADMIT Internal Medicine; ATTEND Internal Medicine
PROC: 0DJ08ZZ Inspection of Upper Intestinal Tract, Via Natural or Artificial Opening Endoscopic (ICD-10-PCS; 2018-06-12)
PROC: 30233N1 Transfusion of Nonautologous Red Blood Cells into Peripheral Vein, Percutaneous Approach (ICD-10-PCS; 2018-06-12)
PROC: 5A1955Z Respiratory Ventilation, Greater than 96 Consecutive Hours (ICD-10-PCS; principal; 2018-06-14)
PROC: 0BH17EZ Insertion of Endotracheal Airway into Trachea, Via Natural or Artificial Opening (ICD-10-PCS; 2018-06-14)
PROC: 05HY33Z Insertion of Infusion Device into Upper Vein, Percutaneous Approach (ICD-10-PCS; 2018-06-14)
PROC: B54MZZA Ultrasonography of Right Upper Extremity Veins, Guidance (ICD-10-PCS; 2018-06-14)
DX: A41.9 Sepsis, unspecified organism (principal); D65 Disseminated intravascular coagulation [defibrination syndrome]; J96.00 Acute respiratory failure, unspecified whether with hypoxia or hypercapnia; N17.0 Acute kidney failure with tubular necrosis; G92 Toxic encephalopathy; E43 Unspecified severe protein-calorie malnutrition; D61.818 Other pancytopenia; J18.9 Pneumonia, unspecified organism; I13.0 Hypertensive heart and chronic kidney disease with heart failure and stage 1 through stage 4 chronic kidney disease, or unspecified chronic kidney disease; K70.31 Alcoholic cirrhosis of liver with ascites; E87.1 Hypo-osmolality and hyponatremia; I50.9 Heart failure, unspecified; K20.9 Esophagitis, unspecified; K29.70 Gastritis, unspecified, without bleeding; E87.6 Hypokalemia; E16.2 Hypoglycemia, unspecified; D50.0 Iron deficiency anemia secondary to blood loss (chronic); G89.29 Other chronic pain; E03.9 Hypothyroidism, unspecified; E78.00 Pure hypercholesterolemia, unspecified; E87.2 Acidosis; F10.10 Alcohol abuse, uncomplicated; F17.210 Nicotine dependence, cigarettes, uncomplicated; G24.9 Dystonia, unspecified; I47.2 Ventricular tachycardia; K25.4 Chronic or unspecified gastric ulcer with hemorrhage; K44.9 Diaphragmatic hernia without obstruction or gangrene; K70.9 Alcoholic liver disease, unspecified; K76.0 Fatty (change of) liver, not elsewhere classified; K86.3 Pseudocyst of pancreas; N18.9 Chronic kidney disease, unspecified; R65.20 Severe sepsis without septic shock; Z66 Do not resuscitate; R29.6 Repeated falls; M54.5 Low back pain; E24.9 Cushing's syndrome, unspecified; R58 Hemorrhage, not elsewhere classified; I08.1 Rheumatic disorders of both mitral and tricuspid valves; Z78.1 Physical restraint status; Z98.1 Arthrodesis status; Z68.32 Body mass index [BMI] 32.0-32.9, adult
CPT/HCPCS: 36415; 36569; 36600; 71045; 72128; 72131; 73522; 74176; 76700; 76770; 76857; 76937; 78580; 80048; 80061; 80076; 80202; 82024; 82088; 82140; 82150; 82248; 82375; 82533; 82550; 82553; 82607; 82670; 82728; 82746; 82805; 82947; 82962; 83001; 83002; 83036; 83525; 83540; 83550; 83605; 83735; 83880; 84100; 84134; 84145; 84244; 84439; 84443; 84484; 84681; 85014; 85018; 85362; 85379; 85384; 86705; 86709; 86803; 86850; 86900; 86920; 86945; 87070; 87106; 87340; 87389; 87493; 87804; 93005; 93306; 93970; 94003; 94640; 96374; 96375; 99291; A6261; C1725; C9113; G0482; J0330; J0692; J0696; J1160; J2060; J2248; J2270; J2370; J2405; J2543; J2704; J3370; J3475; J3480; J3490; J7040; J7042; J7050; J7060; J7070; J7620; J8540; P9016; P9034; A4315